=== PATIENT | male | born 1995 | race Caucasian/White ===

== ENCOUNTER 2022-04-18 21:20 | Emergency (ER) | payer OTHER ==
[~2022-04-18] VITALS: Ht 175.3 cm; Wt 77.3 kg
[2022-04-19] MEDS ORDERED: NEOSPORIN OINT 0.9 GM PKT TOP ONE (01:55)
[2022-04-19 02:09] VITALS: BP 111/58
== END 2022-04-19 02:09 | disposition home or self-care (01) ==
LOC: M ED 21:20
DX: S00.211A Abrasion of right eyelid and periocular area, initial encounter (principal); H05.221 Edema of right orbit; W22.8XXA Striking against or struck by other objects, initial encounter; Y99.1 Military activity